=== PATIENT | female | born 1975 | race Two or more races ===

== ENCOUNTER 2024-08-17 18:44 | Emergency (ER) | payer MEDICAID, SELFPAY ==
--- NOTE | 2024-08-17 19:55 | EKG_ITS ---
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
[2024-08-17 20:00] VITALS: BP 169/88; PULSE 93; RESP 18; TEMP 37.2; O2SAT 100
--- NOTE | 2024-08-17 20:19 | XR_ITS ---
Examination: PA chest single view TECHNIQUE: Upright PA chest single view Date and time: August 17, 20242023 hours INDICATIONS: Chest pain with breathing today. FINDINGS: Normal heart size Lungs are clear. Osseous structures are intact IMPRESSION: No active disease
--- NOTE | 2024-08-17 20:22 | EDNOTE_ITS ---
ED Chest Pain RME/HPI General Chief Complaint: Chest Pain Stated Complaint: CHEST PAIN X 20 MINL; HX HTN Time Seen by Provider: 08/17/24 20:18 Arrival date/time: 08/17/24 18:44 48F with history of HTN and anemia presents to ED with 30 min of L-sided CP and some SOB. Patient denies URI symptoms, anxiety, and fall/trauma. Limitations: no limitations Related Data Home Medications ?Medication ?Instructions ?Recorded ?Confirmed ferrous sulfate 325 mg (65 mg 325 mg PO BIDWM #0 tabs 01/12/17 iron) tablet (Feosol) Previous Rx's ?Medication ?Instructions ?Recorded Hydrocodone/Acetaminophen * (NORCO 1 tab PO Q6H PRN PA IN #20 tabs 12/29/16 5/325 *) Sulfamethoxazole/Trimethoprim DS * 1 tab PO BID #20 ta bs 01/12/17 (BACTRIM DS *) ibuprofen 800 mg tablet 800 mg PO TID PRN pain #30 t abs 01/05/21 diclofenac sodium 75 mg 75 mg PO BID PRN pain #60 ta bs 04/13/21 tablet,delayed release Allergies Allergy/AdvReac Type Severity Reaction Status Date / Time codeine Allergy Intermediate Abdominal Verified 08/17/24 18:48 Pain Review of Systems Review of Systems Systems Reviewed: All systems reviewed, normal except as documented Constitutional Constitutional: Reports system reviewed and no additional complaints, except as documented, Denies fever(s) and Denies headache(s) ENT Ears, Nose, Mouth, and Throat: Denies disequilibrium and Denies headache(s) Cardiovascular Cardiovascular: Reports system reviewed and no additional complaints, except as documented, Reports as per HPI, Reports chest pain and Denies dyspnea Respiratory Respiratory: Reports system reviewed and no additional complaints, except as documented, Denies cough and Denies dyspnea Gastrointestinal Gastrointestinal: Reports system reviewed and no additional complaints, except as documented, Denies abdominal pain, Denies nausea and Denies vomiting Neurologic Neurologic: Reports system reviewed and no additional complaints, except as documented, Denies confusion, Denies disequilibrium and Denies headache(s) Psychiatric Psychiatric: Denies confusion Past Medical History Social History SMOKING STATUS: Never smoker ED Exam General Limitations: Present no limitations General appearance: Present alert and in no apparent distress Head Head exam: Present atraumatic Eye Eye exam: Present normal appearance, PERRL and EOMI ENT ENT exam: Present normal exam, normal oropharynx and mucous membranes moist Neck Neck exam: Present normal inspection, full ROM and trachea midline Chest Chest inspection: Present normal inspection and symmetric chest wall rise Respiratory Respiratory exam: Present normal lung sounds bilaterally Cardiovascular Cardiovascular exam: Present regular rate, normal rhythm and normal heart sounds Abdominal Exam Abdominal exam: Present soft and normal bowel sounds Extremities Exam Extremities exam: Present normal inspection and full ROM Back Exam Back exam: Present normal inspection and full ROM Neurological Exam Neurological exam: Present alert, oriented X3 and CN II-XII intact Psychiatric Psychiatric exam: Present normal affect and normal mood Skin Skin exam: Present warm, dry, intact and normal color Course Quality Measures none Orders Category Date Time Status EKG (ED ONLY) *Do not use* NOW Care 08/17/24 19:55 Completed EKG (ED Only) Stat Exams 08/17/24 19:55 Draft XR chest 1V portable Stat Exams 08/17/24 20:19 Completed CBC Stat Lab 08/17/24 21:02 Completed Comprehensive Metabolic Panel Stat Lab 08/17/24 21:02 Completed D-Dimer Stat Lab 08/17/24 21:02 Completed Partial Thromboplastin Time Stat Lab 08/17/24 21:02 Completed Prothrombin Time with INR Stat Lab 08/17/24 21:02 Completed Troponin I Stat Lab 08/17/24 21:02 Completed Troponin I Stat Lab 08/18/24 00:23 Completed Aspirin Med 08/17/24 20:19 Discontinued 325 mg PO X1 ONE Vital Signs Vital signs: Vital Signs Temperature 99.0 F 08/17/24 20:00 Pulse Rate 93 08/17/24 20:00 Respiratory Rate 18 08/17/24 20:00 Blood Pressure 169/88 H 08/17/24 20:00 Pulse Oximetry (%) 100 08/17/24 20:00 Oxygen Delivery Method Room Air 08/17/24 20:00 O2 at 100% on RA and WNLs Chest Pain MDM Narrative MDM Narrative:: 48F with history of HTN and anemia presents to ED with 30 min of L-sided CP and some SOB. Patient denies URI symptoms, anxiety, and fall/trauma. Physical exam reveals clear lungs. RRR. Patient is afebrile, calm, and alert. EKG is NSR. CXR normal. No leukocytosis. HgB 7.5. Patient confirms no active bleeding. Normal D-dimer. 2x trop normal. Upon reassessment, CP improved. D- dimer normal. 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 Patient data External records reviewed:: [facility] previous records Clinical information provided by:: patient Social determinants that could affect healthcare access:: none Patient has the following chronic illnesses:: HTN and anemia How is presenting disease/condition affected by chronic disease/condition?: exacerbated by Evaluation data The following diagnostics were reviewed and interpreted by me:: lab results, radiology exam(s) and EKG tracing(s) Lab and/or radiology exams considered but not ordered:: ordered Interpretation Summary: above Medications / Prescriptions Medications or Prescriptions considered but not ordered:: ordered Medication administrations:: Medication Administration History Discontinued Medications Aspirin (Aspirin 325 Mg Tablet) 325 mg PO X1 ONE Stop: 08/17/24 20:20 Last Admin: 08/17/24 21:34 Dose: 325 mg Documented By: above Consultations Consultation(s) initiated? (list below): No Diagnosis Chest Pain Differential Diagnosis: fracture of rib, pneumothorax, stable angina, unstable angina pectoris, atypical chest pain, st elevation myocardial infarction, costochondritis, chest pain, biliary colic and other (anemia) Most likely diagnosis given after review of the tests above:: anemia and atypical chest pain Admission Indicated Admission indicated?: not indicated Admission Request Was there a request for admission?: No Disposition Plan Disposition Plan: Discharge Discharge Attestation Discharge Attestation: The patient and all family members were given an opportunity to ask questions and understood the discharge instructions. Discharge instructions specifically effects, indications for sooner follow up or return to the emergency department, and the expected course of current diagnosis. Patient condition: Stable Discharge Plan Plan Patient Disposition: HOME (Self Care) Discharge Disposition comment: Stable Prescriptions/Referrals Prescriptions/Med Rec: No Action Hydrocodone/Acetaminophen * (NORCO 5/325 *) 1 TAB tablet 1 tab PO Q6H PRN (Reason: PAIN) Qty: 20 0RF ferrous sulfate [Feosol] 1 TAB tablet 325 mg PO BIDWM Qty: 0 Sulfamethoxazole/Trimethoprim DS * (BACTRIM DS *) 1 TAB tablet 1 tab PO BID Qty: 20 0RF ibuprofen 800 mg tablet 800 mg PO TID PRN (Reason: pain) Qty: 30 0RF diclofenac sodium 75 mg tablet,delayed release (DR/EC) 75 mg PO BID PRN (Reason: pain) Qty: 60 0RF Referrals: Juan Carlos Vasquez MD [Primary Care Provider] - In 1 week Problem List Clinical Impression: Atypical chest pain, Anemia Patient/Caregiver Discharge Instructions Education Materials: Anemia, ED Chest Pain, Uncertain Cause Additional Instructions: Please follow-up with PCP within 24-48 hours and return immediately if symptoms worsen. Print Language: Bhutanese Stand Alone Forms: Patient Portal Info Letter PA/MOBILE APPLICATION DEVELOPER Supervising Physician PA/MOBILE APPLICATION DEVELOPER Supervising Physician: Dr. Jerome
[2024-08-17 21:25] LABS: Basophils # (Auto) 0.1 Thou/mm3 (0.0-0.2); Basophils % (Auto) 1 % (0-2.5); Eosinophils # (Auto) 0.3 Thou/mm3 (0.0-0.5); Eosinophils % (Auto) 3 % (0-10); Hematocrit 26.1 % (36.0-46.0); Immature Granulocytes % (Auto) 1 % (0-0); Immature Granulocytes Auto 0.07 Thou/mm3 (0.00-0.00); Lymphocytes % (Auto) 21 % (10-50); Mean Corpuscular HGB Conc 28.7 g/dl (31.0-37.0); Mean Corpuscular Hemoglobin 17.4 pg (25.0-35.0); Mean Corpuscular Volume 60 fL (80-100); Monocytes # (Auto) 0.7 Thou/mm3 (0.0-0.8); Monocytes % (Auto) 7 % (0-12); Neutrophils # (Auto) 6.5 Thou/mm3 (1.8-7.7); Neutrophils % (Auto) 68 % (37-80); Nucleated Red Blood Cell % 0 /100 WBC (0); Platelet Count 310 Thou/mm3 (140-440); RDW Standard Deviation 42.4 fL (36.4-46.3); Red Blood Count 4.32 Miln/mm3 (4.00-5.20); White Blood Count 9.6 Thou/mm3 (3.6-11.0)
[2024-08-17] MEDS: Aspirin 325 MG TABLET PO (21:34)
[2024-08-17 21:46] LABS: Hemoglobin 7.5 g/dL (12.0-16.0)
[2024-08-17 21:54] LABS: Partial Thromboplastin Time 23.5 Seconds (22.0-36.0); Prothrombin Time 10.8 Seconds (9.0-12.2)
[2024-08-17 22:02] LABS: D-Dimer < 250 ng/mL (<600)
[2024-08-17 22:57] LABS: Alanine Aminotransferase 19 U/L (10-49); Albumin, Serum 4.4 gm/dL (3.5-5.0); Albumin/Globulin Ratio 1.4 (1.2-2.2); Alkaline Phosphatase 92 U/L (46-116); Anion Gap 10 (7-16); Aspartate Amino Transferase 28 U/L (0-34); BUN/Creatinine Ratio 18 Ratio (12-20); Bilirubin,Total 0.4 mg/dL (0.3-1.2); Blood Urea Nitrogen 14 mg/dL (9-23); Calcium 9.1 mg/dL (8.3-10.6); Calcium (Corrected) 9.1 mg/dL (8.5-10.1); Carbon Dioxide 22.8 mMol/L (20.0-31.0); Chloride 104 mMol/L (98-107); Creatinine (Component) 0.8 mg/dL (0.6-1.3); Globulin 3.1 gm/dL (2.3-3.5); Glucose 127 mg/dL (74-106); Osmolality,Calculated 276 (275-295); Potassium 3.9 mMol/L (3.4-5.1); Sodium 137 mMol/L (136-145); Total Protein 7.5 gm/dL (5.7-8.2); Troponin I < 0.002 ng/mL (0.0-0.045); eGFR > 60 See Note
[2024-08-18 00:46] LABS: Troponin I < 0.002 ng/mL (0.0-0.045)
[2024-08-18 01:55] VITALS: BP 170/81; PULSE 93; RESP 17; TEMP 36.6; O2SAT 100
[2024-08-18 06:22] LABS: Path Review Blood Smear Sent to Pathologist
== END 2024-08-18 02:55 | disposition home or self-care (01) ==
PROVIDERS: Physician Assistant; Emergency Provider Emergency Medicine; PCP Family Medicine
DX: R07.89 Other chest pain (principal); D64.9 Anemia, unspecified; I10 Essential (primary) hypertension
CPT/HCPCS: 36415; 71045; 80053; 84484; 85025; 85379; 85610; 85730; 93005; 99283; A9270

== ENCOUNTER 2024-09-27 17:51 | Emergency (ER) | payer MEDICAID, SELFPAY ==
[2024-09-27 17:51] VITALS: BMI 39.9
[2024-09-27 19:05] VITALS: BP 145/83; PULSE 76; RESP 18; TEMP 37; O2SAT 99
--- NOTE | 2024-09-27 19:17 | EDNOTE_ITS ---
ED Recheck Abnl Lab Rx-RME/HPI General Chief Complaint: General Adult/Misc Complain Stated Complaint: HGB 6.5 VIA FINGERSTICK; SENT BY [facility] Time Seen by Provider: 09/27/24 19:14 Arrival date/time: 09/27/24 17:51 48F with history of anemia 2/2 to heavy cycles and iron-deficiency presents to ED with generalized weakness. Fingerstick HgB was 6.5 at PCP. Patient denies vomiting blood and black/dark stools. Limitations: no limitations Related Data Home Medications ?Medication ?Instructions ?Recorded ?Confirmed ferrous sulfate 325 mg (65 mg 325 mg PO BIDWM #0 tabs 01/12/17 iron) tablet (Feosol) Previous Rx's ?Medication ?Instructions ?Recorded Hydrocodone/Acetaminophen * (NORCO 1 tab PO Q6H PRN PA IN #20 tabs 12/29/16 5/325 *) Sulfamethoxazole/Trimethoprim DS * 1 tab PO BID #20 ta bs 01/12/17 (BACTRIM DS *) ibuprofen 800 mg tablet 800 mg PO TID PRN pain #30 t abs 01/05/21 diclofenac sodium 75 mg 75 mg PO BID PRN pain #60 ta bs 04/13/21 tablet,delayed release Allergies Allergy/AdvReac Type Severity Reaction Status Date / Time codeine Allergy Intermediate Abdominal Verified 09/27/24 17:53 Pain Review of Systems Review of Systems Systems Reviewed: All systems reviewed, normal except as documented Constitutional Constitutional: Reports system reviewed and no additional complaints, except as documented, Reports as per HPI, Reports fatigue, Denies fever(s) and Denies headache(s) ENT Ears, Nose, Mouth, and Throat: Denies disequilibrium and Denies headache(s) Cardiovascular Cardiovascular: Reports system reviewed and no additional complaints, except as documented, Denies chest pain and Denies dyspnea Respiratory Respiratory: Reports system reviewed and no additional complaints, except as documented, Denies cough and Denies dyspnea Gastrointestinal Gastrointestinal: Reports system reviewed and no additional complaints, except as documented, Denies abdominal pain, Denies nausea and Denies vomiting Neurologic Neurologic: Reports system reviewed and no additional complaints, except as documented, Denies confusion, Denies disequilibrium and Denies headache(s) Psychiatric Psychiatric: Denies confusion Endocrine Endocrine: Reports fatigue Past Medical History Social History SMOKING STATUS: Never smoker ED Exam General Limitations: Present no limitations General appearance: Present alert and in no apparent distress Head Head exam: Present atraumatic Eye Eye exam: Present normal appearance, PERRL and EOMI ENT ENT exam: Present normal exam, normal oropharynx and mucous membranes moist Neck Neck exam: Present normal inspection, full ROM and trachea midline Chest Chest inspection: Present normal inspection and symmetric chest wall rise Respiratory Respiratory exam: Present normal lung sounds bilaterally Cardiovascular Cardiovascular exam: Present regular rate, normal rhythm and normal heart sounds Abdominal Exam Abdominal exam: Present soft and normal bowel sounds Extremities Exam Extremities exam: Present normal inspection and full ROM Back Exam Back exam: Present normal inspection and full ROM Neurological Exam Neurological exam: Present alert, oriented X3 and CN II-XII intact Psychiatric Psychiatric exam: Present normal affect and normal mood Skin Skin exam: Present warm, dry, intact and normal color Course Quality Measures none Orders Category Date Time Status Insert IV NOW Care 09/27/24 19:14 Completed CBC Stat Lab 09/27/24 20:34 Completed CMP [Comprehensive Metabolic Panel] Stat Lab 09/27/24 20:34 Completed Iron Panel Stat Lab 09/27/24 20:34 Completed Type and Screen Stat Lab 09/27/24 20:34 Received Vital Signs Vital signs: Vital Signs Temperature 98.6 F 09/27/24 19:05 Pulse Rate 76 09/27/24 19:05 Respiratory Rate 18 09/27/24 19:05 Blood Pressure 145/83 H 09/27/24 19:05 Pulse Oximetry (%) 99 09/27/24 19:05 Oxygen Delivery Method Room Air 09/27/24 19:05 O2 at 99% on RA and WNLs Recheck / Abnormal Lab / Rx MDM Narrative MDM Narrative:: 48F with history of anemia 2/2 to heavy cycles and iron-deficiency presents to ED with generalized weakness. Fingerstick HgB was 6.5 at PCP. Patient denies vomiting blood and black/dark stools. Physical exam reveals well-appearing but tired-looking female. Patient is afebrile, calm, and alert. HgB 7.9 here. 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 Patient data External records reviewed:: [facility] previous records Clinical information provided by:: patient Social determinants that could affect healthcare access:: none Patient has the following chronic illnesses:: anemia How is presenting disease/condition affected by chronic disease/condition?: caused by Evaluation data The following diagnostics were reviewed and interpreted by me:: lab results Lab and/or radiology exams considered but not ordered:: ordered Interpretation Summary: above Medications / Prescriptions Medications or Prescriptions considered but not ordered:: not ordered Medication administrations:: n/a Consultations Consultation(s) initiated? (list below): No Diagnosis Recheck Differential Diagnosis: encounter for medication refill, encounter for wound recheck, encounter for recheck of burn, encounter for removal of sutures and warfarin-induced coagulopathy Most likely diagnosis given after review of the tests above:: anemia Admission Indicated Admission indicated?: not indicated Admission Request Was there a request for admission?: No Disposition Plan Disposition Plan: Discharge Discharge Attestation Discharge Attestation: The patient and all family members were given an opportunity to ask questions and understood the discharge instructions. Discharge instructions specifically effects, indications for sooner follow up or return to the emergency department, and the expected course of current diagnosis. Patient condition: Stable Discharge Plan Plan Patient Disposition: HOME (Self Care) Discharge Disposition comment: Stable Prescriptions/Referrals Prescriptions/Med Rec: No Action Hydrocodone/Acetaminophen * (NORCO 5/325 *) 1 TAB tablet 1 tab PO Q6H PRN (Reason: PAIN) Qty: 20 0RF ferrous sulfate [Feosol] 1 TAB tablet 325 mg PO BIDWM Qty: 0 Sulfamethoxazole/Trimethoprim DS * (BACTRIM DS *) 1 TAB tablet 1 tab PO BID Qty: 20 0RF ibuprofen 800 mg tablet 800 mg PO TID PRN (Reason: pain) Qty: 30 0RF diclofenac sodium 75 mg tablet,delayed release (DR/EC) 75 mg PO BID PRN (Reason: pain) Qty: 60 0RF Referrals: Juan Carlos Vasquez MD [Primary Care Provider] - In 1 week Problem List Clinical Impression: Anemia Patient/Caregiver Discharge Instructions Education Materials: Anemia Additional Instructions: Please follow-up with PCP/OBYGN within 24-48 hours and return immediately if symptoms worsen. Print Language: Danish Stand Alone Forms: Patient Portal Info Letter GARY/NEWSPAPER MANAGER Supervising Physician GARY/MARLENE Supervising Physician: Dr. Jerome
[2024-09-27 21:10] LABS: Basophils # (Auto) 0.1 Thou/mm3 (0.0-0.2); Basophils % (Auto) 1 % (0-2.5); Eosinophils # (Auto) 0.6 Thou/mm3 (0.0-0.5); Eosinophils % (Auto) 6 % (0-10); Hematocrit 27.5 % (36.0-46.0); Immature Granulocytes Auto 0.04 Thou/mm3 (0.00-0.00); Lymphocytes # (Auto) 2.8 Thou/mm3 (1.0-4.8); Lymphocytes % (Auto) 31 % (10-50); Mean Corpuscular HGB Conc 28.7 g/dl (31.0-37.0); Mean Corpuscular Hemoglobin 17.6 pg (25.0-35.0); Mean Corpuscular Volume 61 fL (80-100); Monocytes # (Auto) 0.6 Thou/mm3 (0.0-0.8); Monocytes % (Auto) 6 % (0-12); Neutrophils # (Auto) 5.0 Thou/mm3 (1.8-7.7); Neutrophils % (Auto) 55 % (37-80); Nucleated Red Blood Cell # 0.00 Thou/mm3 (0.00-0.00); Nucleated Red Blood Cell % 0 /100 WBC (0); Platelet Count 415 Thou/mm3 (140-440); RDW Standard Deviation 43.8 fL (36.4-46.3); Red Blood Count 4.48 Miln/mm3 (4.00-5.20); White Blood Count 9.0 Thou/mm3 (3.6-11.0)
[2024-09-27 21:12] LABS: Alanine Aminotransferase 15 U/L (10-49); Albumin, Serum 4.7 gm/dL (3.5-5.0); Albumin/Globulin Ratio 1.6 (1.2-2.2); Alkaline Phosphatase 91 U/L (46-116); Anion Gap 8 (7-16); Aspartate Amino Transferase 25 U/L (0-34); BUN/Creatinine Ratio 14 Ratio (12-20); Bilirubin,Total 0.4 mg/dL (0.3-1.2); Blood Urea Nitrogen 11 mg/dL (9-23); Calcium 9.5 mg/dL (8.3-10.6); Calcium (Corrected) 9.5 mg/dL (8.5-10.1); Carbon Dioxide 23.1 mMol/L (20.0-31.0); Chloride 105 mMol/L (98-107); Creatinine (Component) 0.8 mg/dL (0.6-1.3); Estimated Creatinine Clearance 91.4 mL/min (>60); Globulin 3.0 gm/dL (2.3-3.5); Glucose 95 mg/dL (74-106); Osmolality,Calculated 271 (275-295); Potassium 3.6 mMol/L (3.4-5.1); Sodium 136 mMol/L (136-145); Total Protein 7.7 gm/dL (5.7-8.2); eGFR > 60 See Note
[2024-09-27 21:36] LABS: Hemoglobin 7.9 g/dL (12.0-16.0)
[2024-09-27 21:48] LABS: Iron 28 mcg/dL (50-170); Percent Iron Saturation 5 % (20-55); Total Iron Binding Capacity 468 mcg/dL (250-425); Unsaturated Iron Binding 440 (225-295)
[2024-09-27 22:12] VITALS: RESP 16
== END 2024-09-27 22:13 | disposition home or self-care (01) ==
PROVIDERS: Physician Assistant; Emergency Provider Emergency Medicine; PCP Family Medicine
DX: D64.9 Anemia, unspecified (principal)
CPT/HCPCS: 36415; 80053; 83540; 83550; 85025; 86850; 86900; 86901; 99283